=== PATIENT | female | born 1945 | race Caucasian/White ===

== ENCOUNTER → 2024-06-19 | Outpatient (CLI) | payer MEDICARE ==
[2024-06-19 15:57] LABS: Partial Thromboplastin Time 23.1 sec (22.0-30.0); Prothrombin Time 11.3 sec (10.0-12.5)
[2024-06-19 18:40] LABS: HCT 39.4 % (37.2-46.3); HGB 12.3 g/dL (12.0-15.0); MCH 29.1 pg (27.0-32.0); MCHC 31.2 g/dL (32.0-37.0); MCV 93.1 FL (80.0-97.0); Mean Platelet Volume 10.9 FL (9.5-12.2); NRBC Per 100 WBC 0 X 10*3/uL (0.00-0.01); Platelet Count 226 X 10*3/uL (140-440); RBC 4.23 X 10*6/uL (4.10-5.20); RDW 15.6 % (11.5-14.5); WBC 6.44 X 10*3/uL (4.50-10.00)
[2024-06-19 18:54] LABS: ALT 19 U/L (8-44); AST 23 U/L (13-35); Albumin 4.1 g/dL (3.8-4.9); Albumin/Globulin Ratio 2.05 Ratio (1.60-3.17); Alkaline Phosphatase 79 U/L (41-126); BUN/Creat Ratio 19.62 Ratio (12.00-20.00); Blood Urea Nitrogen 15.7 mg/dL (9.0-27.0); Calcium 9.6 mg/dL (8.7-10.3); Carbon Dioxide 25.1 mmol/L (21.6-31.8); Chloride 108 mmol/L (96-109); Glucose 126 mg/dL (70-110); Sodium 142 mmol/L (135-145); Total Bilirubin 0.3 mg/dL (0.3-1.2); Total Protein 6.1 g/dL (6.2-8.2)
== END | disposition home or self-care (01) ==
LOC: LABPAT 15:08
PROVIDERS: ATTEND Orthopaedic Surgery
DX: Z01.812 Encounter for preprocedural laboratory examination (principal); E11.9 Type 2 diabetes mellitus without complications; M17.12 Unilateral primary osteoarthritis, left knee; Z22.322 Carrier or suspected carrier of Methicillin resistant Staphylococcus aureus
CPT/HCPCS: 80053; 83036; 85027; 85610; 85730; 87070

== ENCOUNTER → 2024-06-19 | Outpatient (CLI) | payer MEDICARE ==
--- NOTE | 2024-06-19 12:51 | CT ---
EXAMINATION TYPE: CT left knee - [facility] Protocol DATE OF EXAM: 06/19/2024 12:45 PM COMPARISON: None. CLINICAL INDICATION: Female, 78 years old with history of M17.12 KNEE PAIN, Pre-Surgical planning lef t knee, TECHNIQUE: Axial CT was performed with sagittal and coronal reformats. 3D reconstruction performed on a separate workstation. IV CONTRAST: , patient injected with mL of . (None if empty) CT DLP: 909 mGycm, Automated exposure control for dose reduction was used. FINDINGS: Moderate narrowing medial tibiofemoral joint space. Moderate narrowing patellofemoral joint space. Mi ld narrowing lateral tibiofemoral joint space. Joint effusion noted. Mild degenerative narrowing of b ilateral hip joint spaces. Ankles are grossly unremarkable. IMPRESSION: Osteoarthritis of the left knee for preoperative planning. [facility], , 06/19/2024 12:49 PM
== END | disposition home or self-care (01) ==
LOC: RADCTMAIN 12:02
PROVIDERS: ATTEND Orthopaedic Surgery
DX: Z01.818 Encounter for other preprocedural examination (principal); M17.12 Unilateral primary osteoarthritis, left knee

== ENCOUNTER 2024-07-04 08:32 | Day surgery (SDC) | payer MEDICARE ==
[~2024-07-04 08:32] MED LIST: LIDOCAINE 1% (10MG/ML) FOR IV START INTRADERMA PRN; ONDANSETRON 4 MG/2 ML VIAL IVP PRN; TRANEXAMIC 1,000 MG/100ML-NACL 1,000 MG in SALINE 1 100ML.BAG IV PRN; TRANEXAMIC 1,000 MG/100ML-NACL 1,000 MG in SALINE 1 100ML.BAG IVPB PRN; fentaNYL (PF) 50 MCG/ML 2 ML AMP IVP PRN
[2024-07-04] MEDS: IV FLUID CONTINUATION 1,000 ML IV ONE (08:58)
[2024-07-04] MEDS: LACTATED RINGERS 1,000 ML IV SCH (09:17)
[2024-07-04] MEDS: DOCUSATE 100 MG CAP PO PRN (09:18)
[2024-07-04] MEDS: oxyCODONE ER 10 MG TAB.ER.12H PO PRN (09:18)
[2024-07-04] MEDS: ACETAMINOPHEN TAB 500 MG TAB PO PRN (09:19)
[2024-07-04] MEDS: ONDANSETRON 4 MG/2 ML VIAL IVP ONE (09:22)
[2024-07-04] MEDS: DEXAMETHASONE SOD PHOSPHATE 10 MG/ML 1 ML VIAL IV PRN (09:23)
[2024-07-04] MEDS: KETOROLAC 15 MG/ML 1 ML VIAL IVP PRN (09:24)
[2024-07-04] MEDS: FAMOTIDINE 20 MG/2 ML VIAL IVP PRN (09:25)
[2024-07-04] MEDS: MIDAZOLAM 2 MG/2 ML VIAL IV PRN (09:41)
[2024-07-04] MEDS ORDERED: SUCCINYLCHOLINE CHLORIDE 200 MG/10 ML VIAL IV ONE (10:20)
[2024-07-04] MEDS ORDERED: PHENYLEPHRINE 10 MG/ML VIAL ONE (10:20)
[2024-07-04] MEDS ORDERED: PROPOFOL 10 MG/ML 20 ML VIAL IV ONE (10:20)
[2024-07-04] MEDS ORDERED: LIDOCAINE 1% INJ 10MG/ML (20 ML MDV) ONE (10:20)
[2024-07-04] MEDS ORDERED: NEOSTIGMINE 1 MG/ML 10 ML VIAL ONE (10:20)
[2024-07-04] MEDS ORDERED: TRANEXAMIC 1,000 MG/100ML-NACL PREMIX BAG ONE (10:20)
[2024-07-04] MEDS ORDERED: fentaNYL (PF) 50 MCG/ML 2 ML AMP ONE (10:20)
[2024-07-04] MEDS ORDERED: GLYCOPYRROLATE 0.2 MG/ML 2 ML VIAL ONE (10:20)
[2024-07-04] MEDS ORDERED: ROPIVACAINE 5 MG/ML 30 ML VIAL ONE (10:20)
[2024-07-04] MEDS ORDERED: HYDROmorphone (PF) 1 MG/ML ONE (10:20)
[2024-07-04] MEDS ORDERED: ROCURONIUM 10 MG/ML (5 ML VIAL) IV ONE (10:20)
[2024-07-04] MEDS ORDERED: DEXAMETHASONE SOD PHOSPHATE 4 MG/ML 1 ML VIAL ONE (10:20)
[2024-07-04] MEDS: ROPIVACAINE/EPI/CLONIDINE/KET 50 ML SYRINGE MISCELLANE PRN (11:05)
[2024-07-04] MEDS: LACTATED RINGERS 1,000 ML IV ONE ×2 (11:48→14:31)
[2024-07-04] MEDS ORDERED: NA PHOS,M-B/NA PHOS,DI-BA 133 ML ENEMA RECTAL PRN (12:24)
[2024-07-04] MEDS ORDERED: NALOXONE 0.4 MG/ML 1 ML VIAL IV PRN (12:24)
[2024-07-04] MEDS ORDERED: MAGNESIUM HYDROXIDE 2,400 MG/30 ML CUP PO PRN (12:24)
[2024-07-04] MEDS ORDERED: HYDROmorphone 0.5 MG/0.5 ML SYRINGE IVP PRN ×3 (12:24)
[2024-07-04] MEDS ORDERED: bisacodyL 10 MG SUPP RECTAL PRN (12:24)
[2024-07-04] MEDS ORDERED: TEMAZEPAM 15 MG CAP PO PRN (12:24)
--- NOTE | 2024-07-04 12:24 | P.OP ---
Date of Procedure: 07/04/24 Preoperative Diagnosis: 1. Severe left knee osteoarthritis 2. Aortic stenosis Postoperative Diagnosis: Same Procedure(s) Performed: 1. Left total knee arthroplasty 2. Computer assisted musculoskeletal navigation using CT/MRI images Implants: 1. [place] [employer] CR Femur Size #3 2. [place] [employer] Melissa Tibial Base Size #3 3. [place] [employer] CS poly Size #3, 9-mm 4. [place] [employer] all poly patella, Size #29 Anesthesia: ANGELIQUE, regional Surgeon: Oniel Gallego [employer] Manager #1: Facundo Rosa Estimated Blood Loss (ml): 300 IV fluids (ml): 800 Pathology: none sent Condition: stable Disposition: PACU Indications for Procedure: I met with the patient preoperatively in the office setting and discussed treatment of their symptomatic knee arthritis. They failed a long course of nonsurgical treatment and elected to proceed with an elective total knee replacement. I discussed the potential risks and complications at length and gave them ample time to ask questions. Risks discussed included: risks from anesthesia, superficial site surgical infection, acute and/or chronic periprosthetic joint infection, delayed wound healing, drainage, wound necrosis, instability, stiffness, stiffness requiring manipulation and/or revision surgery, damage to local blood vessels or nerves, aseptic loosening of the implants, extensor mechanism issues including disruption, patellar maltracking, avascular necrosis etc., continued or worsened knee pain, generalized dissatisfaction with surgical outcome, need for revision surgery, an inability to regain preinjury level of function, DVT, PE, other medical complications, and possibly loss of life or limb. The patient voiced their understanding that while these are the most common complications other less common complications are possible. They provided both their verbal and written consent to go forward with surgery. Operative Findings: Severe tricompartmental arthritis Description of Procedure: The patient was identified in preoperative holding and the correct operative extremity was verified and marked with a marker. I reviewed the consent form with the patient at length. All of their questions were answered. The patient was given a block by anesthesia. They were then brought back to the operating room. They were transferred onto the operating room table where a general anesthetic, preoperative antibiotics, and tranexamic acid were administered by anesthesia. A tourniquet was applied to the proximal aspect of the operative extremity. The contralateral extremity was padded under the heel and secured to the operating room table with a nonsterile blue towel and tape. The ipsilateral arm was carefully draped across the patient's chest and secured with a pillow an d foam. A post was applied over the lateral aspect of the ipsilateral thigh and a bolster was placed under the ipsilateral foot. I verified that the operative extremity was stable and the knee was flexed to 90. The operative extremity was then placed in a leg elias, nonsterile drapes were applied, and the extremity was prepped and draped sterilely in the standard sterile fashion. Prior to starting surgery timeout was performed identifying the correct patient, operative extremity, and procedure. The leg was then elevated, exsanguinated with an Esmarch bandage, and the tourniquet was inflated. An anterior midline incision was made sharply with a scalpel. Once I had dissected deep to the superficial fascial layer medial and lateral flaps were elevated. A medial parapatellar arthrotomy was created. Upon opening the knee joint there were diffuse arthritic changes in all 3 compartments. The anterior horn of the medial meniscus were sharply released and a medial release was performed around the posterior medial corner of the knee to facilitate retractor placement. The fat pad was excised with electrocautery. The patella was found to be severely arthritic and a provisional cut was made with a sagittal saw to facilitate mobilization of the extensor mechanism during the procedure. Remnants of the ACL and PCL were then excised from the notch. 4 mm pins were then placed within the incision in the medial distal femur and proximal tibia. Arrays were applied to the pins and I verified they were completely tightened. The knee was then registered with the [employer] robot and manipulations in implant position were made to balance the knee and opitmize implant position. Using the Chas robotic saw all cuts were made in accordance with our plan. After all bony fragments had been removed the cuts were verified with the planar probe. The tibia was then subluxed forward and sized. The knee was brought into flexion and a lamina data report analyst was placed to allow removal of the meniscal remnants both medially and laterally as well as posterior osteophytes. Local anesthetic was then infiltrated around the joint capsule. Trial implants were then placed within the knee. Range of motion and collateral ligament tension was then evaluated. Adjustments in implant size and position were then made accordingly. Once the knee was felt to be appropriately balanced the Chas pins were removed. The patella was then recut, sized, and punched. A trial patellar button was then placed. With the trial components in place, the patella tracked midline. The femur was then drilled and the trial component removed. The trial tibial component was then appropriately rotated, pinned, and prepared for the keel. All trial components were then removed from the knee. The knee was thoroughly irrigated with pulsatile lavage. Cement was prepared via vacuum mixing in a bowl on the back table. I then hand pressurized cement into the femur and tibia and placed the implants beginning with the tibial base tray and poly liner, femoral component, and finally the patellar button. All extruded cement was removed including from the pin sites. Once the cement had hardened the knee was evaluated one final time with the final polyethylene liner in place. The knee had full extension and flexion and felt stable to varus and valgus stress throughout the arc of motion. The tourniquet was released and with the tourniquet down the patella tracked midline. All bleeders were controlled with electrocautery. The knee was then soaked for 3 minutes with a dilute Betadine soak. The knee was thoroughly irrigated using 3 L of sterile saline and pulsatile lavage. A deep drain was placed. The extensor mechanism was then reapproximated using pop off Vicryl sutures followed by a running barbed suture. The knee was then closed in layers with a 0 strata fix for the deep fascial layer, 2-0 strata fix for the superficial subcutaneous layer and Monocryl and Steri-Strips for the skin. A sterile dressing and drain sponge were applied. I verified that all instrument, sponge, and sharp counts were correct. The patient was then transferred off the operating room table, extubated, and brou ght to recovery having tolerated the procedure well. Facundo Rosa PA-C was required as a skilled mailroom assistant due to the complexity of surgery for patient positioning, draping, exposure, retraction, closure of wound and application of dressing. PLAN: The patient can weight-bear as tolerated on the operative extremity. DVT prophylaxis with aspirin 81 mg twice a day based on preoperative risk st ratification. Follow-up in the office in 2 weeks for wound check and x-rays of the knee including an AP and lateral.
[2024-07-04] MEDS: HYDROmorphone 0.5 MG/0.5 ML SYRINGE IVP PRN (13:06)
[2024-07-04] MEDS: MEPERIDINE 25 MG/ML SYRINGE IVP STA (13:39)
--- NOTE | 2024-07-04 13:58 | XR ---
EXAMINATION TYPE: XR knee limited LT DATE OF EXAM: 07/04/2024 1:38 PM COMPARISON: None CLINICAL INDICATION: Female, 78 years old with history of Evaluation for Postop abnormality and align ment; PHH, pain TECHNIQUE: XR knee limited LT 2 views submitted. FINDINGS: Status post total knee arthroplasty changes with hardware in appropriate alignment and in tact. No evidence of fracture. Subcutaneous lucencies and lucencies within the joint consistent with surgical changes. IMPRESSION: Status post total knee arthroplasty changes with hardware intact and appropriate alignment. No fractu res identified. [facility], , 07/04/2024 1:55 PM
[2024-07-04] MEDS: DEXAMETHASONE SOD PHOSPHATE 4 MG/ML 1 ML VIAL IV ONE (15:50)
--- NOTE | 2024-07-04 17:09 | P.CONS ---
History of Present Illness - Reason for Consult Consult date: 07/04/24 Medical management - History of Present Illness History of present illness; 78-year-old female with PMH of hypertension, hyperlipidemia, hypothyroidism, iron deficiency and osteoarthritis, who is presenting for left total knee arthroplasty following worsening of osteoarthritis. Patient is now postop with no known surgical complications. Patient is sitting up in bed resting with no complaints of pain. She reports absence of fever, chills, weight loss, chest pain, palpitations, diaphoresis, dyspnea, cough, nausea, vomiting, constipation, diarrhea, abdominal pain, weakness, myalgia, dizziness, headache, and dysuria. Internal medicine was consulted for medical management. Initial lab workup from 06/19/2024 revealed WBC 6.44, hemoglobin 12.3, medic at 39.4, platelet 226; sodium 142, potassium 4.0, BUN 15.7, creatinine 0.8, calcium 9.6, total bilirubin 0.3, AST 23, ALT 19, alkaline phosphatase 79 Postoperative left knee x-ray showed intact total left knee arthroplasty hardware with appropriate alignment without any identifiable fractures. REVIEW OF SYSTEMS: All systems reviewed, pertinent positives and negatives noted in HPI. All other symptoms are negative. PHYSICAL EXAMINATION: Vitals reviewed GENERAL: No acute distress. Well developed, well nourished. HEENT: Pupils are round and equally reacting to light. EOMI. No scleral icterus. Normocephalic, atraumatic. No pharyngeal erythema. No thyromegaly. CARDIOVASCULAR: S1 and S2 present. No murmurs, rubs, or gallops. PULMONARY: Chest is clear to auscultation, no wheezing, rhonchi, or crackles. ABDOMEN: Soft, nontender, nondistended, normoactive bowel sounds. No palpable organomegaly. MUSCULOSKELETAL: No apparent joint swelling and deformities. Vertical bandage, covering the incision on the left knee. Clean without signs of erythema or drainage. EXTREMITIES: No apparent cyanosis, clubbing, or pedal edema. NEUROLOGICAL: The patient is alert and oriented x3, Gross neurological examination did not reveal any focal deficits. 5/5 strength bilateral UE and LE. SKIN: No apparent rashes. Assessment and plan Patient is a 78-year-old female with PMH of hypertension, hyperlipidemia, hypothyroidism and osteoarthritis, who is presenting for left total knee arthroplasty following worsening of osteoarthritis. Chronic Medical Conditions #Hypertension -Resume home Norvasc 5 mg daily and irbesartan 150 mg daily #Hyperlidemia -Resume home Crestor 5 mg nightly #Hypothyroidism -Resume home Synthroid 112 mcg daily #Iron deficiency -Resume home Niferex-150 #Total left knee arthroplasty -Pain management and DVT prophylaxis per primary surgical team F: IV LR 20 mL/hr E: Replete as needed N: Heart healthy diet DVT ppx: per primary surgical team Code status: Full code Patient is stable from medical stand point Follow up CBC and CMP in AM Dictation was produced using [employer] dictation software. Please excuse any grammatical, word or spelling errors. Kip Huffman MD PGY-1 IM I saw and evaluated the patient during the reid and critical portions of this encounter, and discussed the case in detail with the resident author of this note, I agree with the Assessment and Plan, and my changes, if any, are highlighted in blue. I saw this patient on 07/04/2024 along with the resident at bedside. Past Medical History Past Medical History: Hyperlipidemia, Hypertension, Memory Impairment, Thyroid Disorder Additional Past Medical History / Comment(s): hypothyroidism, aortic valve stenosis, short term memory issues x 5 yrs. History of Any Multi-Drug Resistant Organisms: None Reported Past Surgical History: Section, Tubal Ligation Additional Past Surgical History / Comment(s): CS X3, salpingectomy, colonoscopy Past Anesthesia/Blood Transfusion Reactions: No Reported Reaction Past Psychological History: No Psychological Hx Reported Smoking Status: Former smoker Past Alcohol Use History: Occasional Additional Past Alcohol Use History / Comment(s): quit smoking 1975, smoked x 5 yrs Past Drug Use History: None Reported - Past Family History Mother Family Medical History: Cancer Additional Family Medical History / Comment(s): colon cancer Father Family Medical History: Cancer Additional Family Medical History / Comment(s): prostate, liver cancer Brother(s) Family Medical History: Myocardial Infarction ([place]) Additional Family Medical History / Comment(s): of [place] age 65 Son(s) Family Medical History: Cancer Additional Family Medical History / Comment(s): colorectal, lung cancer Medications and Allergies Home Medications Medication Instructions Recorded Confirmed Type Calcium Carbonate [Calcium] 1,200 mg PO DAILY 07/02/24 07/04/24 History Irbesartan 150 mg PO DAILY 07/02/24 07/04/24 History Iron Polysaccharide Complex 150 mg PO DAILY 07/02/24 07/04/24 History [Ferrex 150] L.acidoph,Paracasei, B.lactis 1 tab PO DAILY 07/02/24 07/04/24 History [Probiotic] Levothyroxine Sodium [Synthroid] 112 mcg PO DAILY 07/02/24 07/04/24 History [place] Supplement 1 mg PO DAILY 07/02/24 07/04/24 History Magnesium 200 mg PO DAILY 07/02/24 07/04/24 History Multivitamin [Multivitamins Adult 1 tab PO DAILY 07/02/24 07/04/24 History Gummies] Pantoprazole [Protonix] 40 mg PO DAILY 07/02/24 07/04/24 History Rosuvastatin Calcium [Crestor] 5 mg PO HS 07/02/24 07/04/24 History amLODIPine [Norvasc] 5 mg PO DAILY 07/02/24 07/04/24 History Aspirin 81 mg PO BID #60 tab 07/04/24 Rx Sennosides-Docusate Sodium 1 tab PO BID PRN #60 tablet 07/04/24 Rx [Senokot-S] Celecoxib [CeleBREX] 200 mg PO BID #30 cap 07/05/24 Rx HYDROcodone/APAP 5-325MG [[place] 1 - 2 tab PO Q6HR PRN #24 tab 07/05/24 Rx 5-325] Omeprazole [PriLOSEC] 40 mg PO DAILY #30 cap 07/05/24 Rx Ondansetron [Zofran] 4 mg PO Q8HR PRN #20 tab 07/05/24 Rx Allergies Allergy/AdvReac Type Severity Reaction Status Date / Time No Known Allergies Allergy Verified 07/04/24 09:07 Physical Exam Osteopathic Statement: *. No significant issues noted on an osteopathic structural exam other than those noted in the History and Physical/Consult. Vitals: Vital Signs Temp Pulse Resp BP Pulse Ox 07/04/24 14:45 72 18 109/61 97 07/04/24 14:30 69 18 114/60 98 07/04/24 14:15 75 18 99/56 97 07/04/24 14:00 69 18 110/65 95 07/04/24 13:45 80 18 141/63 100 04/04/25 13:30 74 18 139/69 100 07/04/24 13:15 75 18 133/65 100 07/04/24 13:00 75 18 151/70 100 07/04/24 12:45 96.8 F L 84 18 134/64 100 07/04/24 09:53 65 16 117/58 98 07/04/24 09:05 97.7 F 71 18 156/72 97 Intake and Output 07/04/24 07/04/24 07/04/24 06:59 14:59 22:59 Intake Total 2100 Output Total 300 Balance 1800 Intake: IV 2100 Output: Estimated Blood Loss 300 Other: Weight 90.7 kg 90.7 kg Results CBC & Chem 7: 07/05/24 05:58 07/05/24 05:58
[2024-07-04] MEDS: ONDANSETRON 4 MG/2 ML VIAL IVP PRN (17:31)
[2024-07-04] MEDS: SODIUM CHLORIDE 0.9% 1,000 ML IV SCH (18:20)
[2024-07-04] MEDS: ASPIRIN 81 MG PO SCH (20:27)
[2024-07-04] MEDS: SENNOSIDES-DOCUSATE SODIUM 1 EACH TAB PO SCH (20:27)
[2024-07-04] MEDS: ATORVASTATIN 10 MG TAB PO SCH (20:27)
[2024-07-04] MEDS: HYDROcodone/APAP 5-325MG 1 EACH TAB PO PRN (23:03)
[2024-07-05] MEDS: HYDROcodone/APAP 10-325MG 1 EACH TAB PO PRN (05:22)
[2024-07-05] MEDS: LEVOTHYROXINE 112 MCG TAB PO SCH (06:30)
[2024-07-05 06:51] LABS: African American GFR (CKD) >90 (>60 ml/min/1.73 sqM); Anion Gap 5 mmol/L; Blood Urea Nitrogen 16 mg/dL (7-17); Calcium 9.1 mg/dL (8.4-10.2); Carbon Dioxide 24 mmol/L (22-30); Chloride 104 mmol/L (98-107); Glucose 131 mg/dL (74-99); Non-African American GFR(CKD) 85 (>60 ml/min/1.73 sqM); Potassium 4.4 mmol/L (3.5-5.1); Sodium 133 mmol/L (137-145)
[2024-07-05] MEDS: LOSARTAN 50 MG TAB PO SCH (08:13)
[2024-07-05] MEDS: PANTOPRAZOLE 40 MG TABLET PO SCH (08:13)
[2024-07-05] MEDS: amLODIPine 5 MG TAB PO SCH (08:13)
--- NOTE | 2024-07-05 08:39 | P.DS ---
Providers Date of admission: 07/04/2024 Attending physician: Oniel Gallego Consults: 07/04/24 12:24 Consult Physician Routine Consulting Provider: Julia Lopez Consult Reason/Comments: post op medical management Do you want consulting provider notified?: Yes Primary care physician: Michael Wahl Hospital Course: The patient is a very pleasant 78-year-old female who is admitted under my care yesterday and underwent uncomplicated total knee replacement. Following surgery she was transferred to the orthopedic floor in stable condition. She received 2 doses of postoperative antibiotics. Internal medicine was consulted and assisted with her perioperative medical management. She was seen postoperative day #1 and was doing well. The dressing over her left knee was intact with only a small area of strikethrough distally. Her thigh and calf are soft. She was able to perform a straight leg raise. She could actively plantarflex and dorsiflex her ankle and her toes. She worked with physical therapy and did reasonably well. She was tentatively cleared for discharge home on postoperative day #1. Patient Condition at Discharge: Good Plan - Discharge Summary Discharge Rx Participant: No New Discharge Prescriptions: New Aspirin 81 mg PO BID #60 tab Celecoxib [CeleBREX] 200 mg PO BID #30 cap Sennosides-Docusate Sodium [Senokot-S] 1 tab PO BID PRN #60 tablet PRN Reason: Constipation HYDROcodone/APAP 5-325MG [[place] 5-325] 1 - 2 tab PO Q6HR PRN #24 tab PRN Reason: Pain Omeprazole [PriLOSEC] 40 mg PO DAILY #30 cap Ondansetron [Zofran] 4 mg PO Q8HR PRN #20 tab PRN Reason: Nausea No Action Magnesium 200 mg PO DAILY Calcium Carbonate [Calcium] 1,200 mg PO DAILY Multivitamin [Multivitamins Adult Gummies] 1 tab PO DAILY Iron Polysaccharide Complex [Ferrex 150] 150 mg PO DAILY amLODIPine [Norvasc] 5 mg PO DAILY Rosuvastatin Calcium [Crestor] 5 mg PO HS Pantoprazole [Protonix] 40 mg PO DAILY Levothyroxine Sodium [Synthroid] 112 mcg PO DAILY Irbesartan 150 mg PO DAILY Tool Supplement 1 mg PO DAILY L.acidoph,Paracasei, B.lactis [Probiotic] 1 tab PO DAILY Discharge Medication List Calcium Carbonate [Calcium] 1,200 mg PO DAILY 07/02/24 [History] Irbesartan 150 mg PO DAILY 07/02/24 [History] Iron Polysaccharide Complex [Ferrex 150] 150 mg PO DAILY 07/02/24 [History] L.acidoph,Paracasei, B.lactis [Probiotic] 1 tab PO DAILY 07/02/24 [History] Levothyroxine Sodium [Synthroid] 112 mcg PO DAILY 07/02/24 [History] Tool Supplement 1 mg PO DAILY 07/02/24 [History] Magnesium 200 mg PO DAILY 07/02/24 [History] Multivitamin [Multivitamins Adult Gummies] 1 tab PO DAILY 07/02/24 [History] Pantoprazole [Protonix] 40 mg PO DAILY 07/02/24 [History] Rosuvastatin Calcium [Crestor] 5 mg PO HS 07/02/24 [History] amLODIPine [Norvasc] 5 mg PO DAILY 07/02/24 [History] Aspirin 81 mg PO BID #60 tab 07/04/24 [Rx] Sennosides-Docusate Sodium [Senokot-S] 1 tab PO BID PRN #60 tablet 07/04/24 [Rx] Celecoxib [CeleBREX] 200 mg PO BID #30 cap 07/05/24 [Rx] HYDROcodone/APAP 5-325MG [[place] 5-325] 1 - 2 tab PO Q6HR PRN #24 tab 07/05/24 [Rx] Omeprazole [PriLOSEC] 40 mg PO DAILY #30 cap 07/05/24 [Rx] Ondansetron [Zofran] 4 mg PO Q8HR PRN #20 tab 07/05/24 [Rx] Follow up Appointment(s)/Referral(s): Oniel Gallego MD [Medical Doctor] - 2 Weeks Activity/Diet/Wound Care/Special Instructions: 1. Weight-bear as tolerated on your operative extremity unless instructed otherwise. Use a walker or other assistive device to ambulate. 2. Leave surgical dressing in place. If your dressing becomes saturated with blood, there is drainage, or the dressing becomes loose please contact the office. 3. It is okay to shower with your surgical dressing, but do not submerge in water (no hot tubs, bath's, swimming etc.) 4. Take your blood clot prevention medication as prescribed (aspirin, Eliquis, Xarelto, and Plavix are commonly prescribed medications for blood clot prevention) 5. While taking [place] or Percocet for pain take a stool softener (Ex: Colace) and drink lots of water. 6. Keep all follow-up appointments as scheduled. You will usually be seen in 1-2 weeks following surgery. 7. Please contact the office with any questions or concerns [phone] Discharge Disposition: HOME WITH HOME HEALTH SERVICES
[2024-07-05 08:40] VITALS: BP 116/72; PULSE 73; RESP 18; TEMP 98.4
[2024-07-05 09:44] LABS: Basophils # (A) 0.01 X 10*3/uL (0.00-0.10); Basophils % (A) 0.1 %; Eosinophils # (A) 0 X 10*3/uL (0.04-0.35); Eosinophils % (A) 0 %; HGB 9.8 g/dL (12.0-15.0); Lymphocytes # (A) 0.48 X 10*3/uL (0.90-5.00); Lymphocytes % (A) 3.7 %; MCH 29.3 pg (27.0-32.0); MCHC 31.6 g/dL (32.0-37.0); MCV 92.8 FL (80.0-97.0); Mean Platelet Volume 11.3 FL (9.5-12.2); Monocytes # (A) 0.71 X 10*3/uL (0.20-1.00); Monocytes % (A) 5.4 %; NRBC Per 100 WBC 0 X 10*3/uL (0.00-0.01); Neutrophils # (A) 11.83 X 10*3/uL (1.80-7.70); Neutrophils % (A) 90.3 %; Platelet Count 199 X 10*3/uL (140-440); RBC 3.34 X 10*6/uL (4.10-5.20)
--- NOTE | 2024-07-05 11:19 | P.PN ---
Subjective Progress Note Date: 07/05/24 History of present illness; 78-year-old female with PMH of hypertension, hyperlipidemia, hypothyroidism, ir on deficiency and osteoarthritis, who is presenting for left total knee arthroplasty following worsening of osteoarthritis. Patient is now postop with no known surgical complications. Patient is sitting up in bed resting with no complaints of pain. She reports absence of fever, chills, weight loss, chest pain, palpitations, diaphoresis, dyspnea, cough, nausea, vomiting, constipation, diarrhea, abdominal pain, weakness, myalgia, dizziness, headache, and dysuria. Internal medicine was consulted for medical management. Initial lab workup from 06/19/2024 revealed WBC 6.44, hemoglobin 12.3, medic at 39.4, platelet 226; sodium 142, potassium 4.0, BUN 15.7, creatinine 0.8, calcium 9.6, total bilirubin 0.3, AST 23, ALT 19, alkaline phosphatase 79 Postoperative left knee x-ray showed intact total left knee arthroplasty hardware with appropriate alignment without any identifiable fractures. 07/05 - She is seen and examined at bedside this morning. She had no acute events overnight, and has no acute complaints this time. Completed working with physical therapy this morning. Likely discharge today. REVIEW OF SYSTEMS: All systems reviewed, pertinent positives and negatives noted in HPI. All other symptoms are negative. PHYSICAL EXAMINATION: Vitals reviewed GENERAL: No acute distress. Well developed, well nourished. HEENT: Pupils are round and equally reacting to light. EOMI. No scleral icterus. Normocephalic, atraumatic. No pharyngeal erythema. No thyromegaly. CARDIOVASCULAR: S1 and S2 present. No murmurs, rubs, or gallops. PULMONARY: Chest is clear to auscultation, no wheezing, rhonchi, or crackles. ABDOMEN: Soft, nontender, nondistended, normoactive bowel sounds. No palpable organomegaly. MUSCULOSKELETAL: No apparent joint swelling and deformities. Vertical bandage, covering the incision on the left knee. Clean without signs of erythema or drainage. EXTREMITIES: No apparent cyanosis, clubbing, or pedal edema. NEUROLOGICAL: The patient is alert and oriented x3, Gross neurological examination did not reveal any focal deficits. 5/5 strength bilateral UE and LE. SKIN: No apparent rashes. Data Received Today: Labs: WBCs 13.1, hemoglobin 9.8, hematocrit 31.0, platelet 199; sodium 133, potassium 4.4, BUN 16, creatinine 0.64, calcium 9.1 Imagining: No new imaging today Assessment and plan Patient is a 78-year-old female with PMH of hypertension, hyperlipidemia, hypothyroidism and osteoarthritis, who is presenting for left total knee arth roplasty following worsening of osteoarthritis. #Leukocytosis, expected in reactive setting s/p surgery -Continue monitor CBC #Acute blood loss anemia, expected s/p surgery -Continue to monitor CBC Chronic Medical Conditions #Hypertension -Resume home Norvasc 5 mg daily and irbesartan 150 mg daily #Hyperlidemia -Resume home Crestor 5 mg nightly #Hypothyroidism -Resume home Synthroid 112 mcg daily #Iron deficiency -Resume home Niferex-150 #Total left knee arthroplasty -Pain management and DVT prophylaxis per primary surgical team She is currently medically optimized for discharge. We will continue to follow-up for the duration of her stay. Thank you very much for this consult. DVT ppx: Per the primary surgical team Code status: Full code F: LR at 20 cc/h E: Replete as needed N: Heart healthy diet A: Ambulatory at baseline Anticipated discharge place: Home Anticipated discharge time: Today Dictation was produced using [employer] dictation software. please excuse any grammatical, word or spelling errors. Kip Huffman MD PGY-1 IM I saw and evaluated the patient during the reid and critical portions of this encounter, and discussed the case in detail with the resident author of this note, I agree with the Assessment and Plan, and my changes, if any, are highlighted in blue. I saw evaluate this patient on 07/04/2024 along with the resident at bedside. Objective - Vital Signs Vital signs: Vital Signs Temp 97.8 F 07/05/24 01:20 Pulse 72 07/05/24 01:20 Resp 15 07/05/24 01:20 BP 107/62 07/05/24 01:20 Pulse Ox 95 07/05/24 01:20 FiO2 Intake & Output 07/04/24 07/05/24 07/05/24 18:59 06:59 18:59 Intake Total 2100 Output Total 300 Balance 1800 Weight 90.7 kg Intake: IV 2100 Output: Estimated Blood Loss 300 Other: Voiding Method Toilet # Voids 0 2 - Labs CBC & Chem 7: 07/05/24 05:58 07/05/24 05:58 Labs: Abnormal Lab Results - Last 24 Hours (Table) 07/05/24 Range/Units 05:58 Sodium 133 L (137-145) mmol/L Glucose 131 H (74-99) mg/dL
[2024-07-05] MEDS ORDERED: IRON POLYSACCHARIDES COMPLEX 150 MG CAP PO SCH (12:00)
--- NOTE | 2024-07-06 17:10 | P.ANPRN ---
Procedure Note - Anesthesia - Nerve Block Performed Left Adductor Canal Single Time Out Performed: Yes Date of Procedure: 07/04/24 Procedure Start Time: : Procedure Stop Time: :44 Location of Patient: PreOp Indication: Acute Post-Operative Pain, Requested by Surgeon Sedation Type: Sedate with meaningful contact maintained Preparation: Sterile Prep Position: Supine Needle Types: Pajunk Needle Gauge: 21 Ultrasound used to visualize needle placement: Yes Ultrasound used to observe medication spread: Yes Blood Aspirated: No Pain Paresthesia on Injection Noted: No Resistance on Injection: Normal Image Stored and Saved: Yes Events: Uneventful and Well Tolerated (Ropivacaine 0.5% 20 cc plus dexamethasone 4 mg)
--- NOTE | 2024-07-06 17:12 | P.ANPRN ---
Procedure Note - Anesthesia - Nerve Block Performed Left iPack Single Time Out Performed: Yes Date of Procedure: 07/04/24 Procedure Start Time: 09:45 Procedure Stop Time: 09:47 Location of Patient: PreOp Indication: Acute Post-Operative Pain Sedation Type: Sedate with meaningful contact maintained Preparation: Sterile Prep Position: Supine Needle Types: Pajunk Needle Gauge: 21 Ultrasound used to visualize needle placement: Yes Ultrasound used to observe medication spread: Yes Blood Aspirated: No Pain Paresthesia on Injection Noted: No Resistance on Injection: Normal Image Stored and Saved: Yes Events: Uneventful and Well Tolerated (Ropivacaine 0.5% 20 cc plus dexamethasone 4 mg)
== END 2024-07-05 11:55 | disposition home health service (06) ==
LOC: OR 08:32 → 4SSUR 12:55 → OR 07-05 11:55
PROVIDERS: ATTEND Orthopaedic Surgery
DX: M17.12 Unilateral primary osteoarthritis, left knee (principal); I35.0 Nonrheumatic aortic (valve) stenosis; I10 Essential (primary) hypertension; G89.18 Other acute postprocedural pain; E78.5 Hyperlipidemia, unspecified; E61.1 Iron deficiency; E03.9 Hypothyroidism, unspecified; D62 Acute posthemorrhagic anemia; F03.90 Unspecified dementia, unspecified severity, without behavioral disturbance, psychotic disturbance, mood disturbance, and anxiety; K21.9 Gastro-esophageal reflux disease without esophagitis; D72.829 Elevated white blood cell count, unspecified; Z79.82 Long term (current) use of aspirin; Z79.890 Hormone replacement therapy; Z79.899 Other long term (current) drug therapy; Z87.891 Personal history of nicotine dependence; Z98.890 Other specified postprocedural states; Z90.79 Acquired absence of other genital organ(s)
CPT/HCPCS: 0055T; 27447; 64447; 64473; 80048; 85025